=== PATIENT | male | born 1965 | race Caucasian/White ===

== ENCOUNTER 2020-12-19 12:24 | Emergency (ER) | payer MEDICARE, OTHER ==
[2020-12-19 12:48] LABS: HEMOGLOBIN 15.6 gm/dl (14.0-17.5); RED BLOOD COUNT 4.97 M/UL (4.20-5.50)
[2020-12-19 13:17] LABS: BUN/CREATININE RATIO 29 (0-10)
[2020-12-19] MEDS ORDERED: ZOFRAN4 MG PO (16:49)
[2020-12-19] MEDS ORDERED: AUGMENTIN 875-1 EACH PO (16:49)
[2020-12-19] MEDS ORDERED: BENTYL 20MG TAB20 MG PO (16:49)
== END 2020-12-19 17:08 | disposition home or self-care (01) ==
LOC: ER1 12:24
DX: K80.20 Calculus of gallbladder without cholecystitis without obstruction (principal); D72.829 Elevated white blood cell count, unspecified; Z20.822 Contact with and (suspected) exposure to COVID-19
CPT/HCPCS: 71045; 80053; 81001; 82550; 82553; 83874; 84484; 85025; 93005; 96374; 96375; 99285; J2270; J2405; Q9967; U0002

== ENCOUNTER 2021-02-21 01:57 | Emergency (ER) | payer MEDICARE, OTHER ==
[~2021-02-21 01:57] MED LIST: AUGMENTIN 875-1 EACH PO; BENTYL 20MG TAB20 MG PO; ZOFRAN4 MG PO
== END 2021-02-21 02:30 | disposition left against medical advice (07) ==
LOC: ER1 01:57
DX: Z53.21 Procedure and treatment not carried out due to patient leaving prior to being seen by health care provider (principal)